=== PATIENT | male | born 1955 | race Caucasian/White ===

== ENCOUNTER 2020-10-04 10:45 | Outpatient (RCR) | payer MEDICARE, MEDICAID, SELFPAY ==
--- NOTE | 2020-07-06 10:31 | PTOPEVAL ---
PHYSICAL THERAPY EVALUATION AND PLAN OF CARE 07-06-2020 Thank you for referring Red Hidalgo to [facility] [place], S/P lL BKA. He is scheduled to be seen for therapy? 2 x/week for 5 weeks. Please review, sign, date and return this plan of care JORGE. I agree with and certify that the following plan of care is medically necessary. Referring Physician Date Referring Provider: Dr. Frederick Arias *PT Outpatient Evaluation Document 07/06/20 09:16 JENNIFER (Rec: 07/06/20 10:31 JENNIFER [id number]) Outpatient Past Medical History Past Medical History Source of Past Medical History Patient Neurological History Hx Neurological Disorders No Significant History Cardiovascular History Hx Coronary Artery Disease Yes Hx Hypercholesterolemia Yes: meds Hx Hypertension Yes: meds Respiratory History Hx Respiratory Disorders No Significant History Gastrointestinal History Hx Gastrointestinal Disorders No Significant History Genitourinary History Hx Genitourinary Disorders No Significant History Musculoskeletal History Hx Arthritis Yes: R knee arthritis, history of R knee pain Hx Orthopedic Surgery Yes: this admit L BKA Hematological History Hx Hematological Disorders No Significant History Endocrine History Hx Diabetes Yes: meds control HEENT History Hx Other HEENT Disorders Yes: glasses Integumentary History Hx Skin Disorders No Significant History Evaluation Information Problem Diagnosis s/p L BKA Onset 02-09-20 Subjective Information 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 Query Text:As Reported By Patient/ bone; live in [place] at time of Family surgery, in March, moved here to live with sister April; waiting for wound to heal then got prosthesis few weeks ago Prior Level of Function Activity Level (Last 3 Months) Occupation 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
--- NOTE | 2020-08-01 09:17 | PCPTNOTE ---
pt did not show for today's appointment; called him and he stated do not have an appointment today, not come back until 08-06-20 .
--- NOTE | 2020-08-09 10:03 | PTOPEVAL ---
PHYSICAL THERAPY REEVALUATION AND UPDATED PLAN OF CARE 08-09-2020 Refer to the clinical summary below for Mr. Hidalgo's improvements in mobility since start of care. Continue PT services 2x/week for 4 weeks. Thank you for referring Red Hidalgo to [facility] [place].? Please review, sign, date and return this updated plan of care [facility]. I agree with and certify that the following plan of care is medically necessary. Referring Physician Date Referring Provider: Frederick Arias MD *PT Outpatient Re-Evaluation Document 08/09/20 09:00 JENNIFER (Rec: 08/09/20 10:03 JENNIFER [id number]) Subjective Information Red reports: wearing Query Text:As Reported By Patient/ prosthesis 3 hours; no issues Family with skin; getting in/out of car and van is awkward- can do himself, but trouble with it; using wheel chair for mobility in home when leg is off for all but 3 hours/day; doing exercises at home, want to continue therapy and walk better; Pain Assessment Timing of Pain Assessment Timing of Pain Assessment Assessment Self Report Self Report Pain Level 0 Pain Score Pain Score 0: Self Report Additional Pain Score Comments with walking, L LE stump/ phantom pain 5/10; Lower Extremity Muscle Strength Testing General Lower Extremity Strength Gross Lower Extremity Strength single leg standing R 8 sec/ L unable; with 1 UE hold L x 4 seconds supine: 5# SLR R 35 / L 46 reps; hip abduction R 20/L 23reps Transfer Assessment Chair Transfer Assessment Chair Transfer Assistive Devices None Orthotic/Prosthetic Devices Left Lower Extremity Prosthesis Sit to Stand Chair Transfer Ability Independent Stand to Sit Chair Transfer Ability Independent Ability to Transfer In/Out of Chair Independent Cues Needed for Chair Transfer None Chair Transfer Comments without use of UE from 18 seat height Floor Transfer Assessment Ambulation Assistive Devices None Orthotic/Prosthetic Devices Left Lower Extremity Prosthesis Sit to Floor Transfer Ability Independent Floor to Sit Transfer Ability Independent Cues Needed for Floor Transfer None Floor Transfer Comments use of UE on mat Balance Assessment Balance Screen Balance Comment static stand x 3 min no loss balance;reach R/L UE up wit
--- NOTE | 2020-09-06 11:55 | PTOPEVAL ---
PHYSICAL THERAPY RE-EVALUATION AND UPDATED PLAN OF CARE 09-06-2020 Refer to the clinical summary below for his status at today's reassessment. Thank you for referring Red Hidalgo to [facility].? He is scheduled to be seen for therapy? 2 x/week for 4 weeks. Please review, sign, date and return this updated plan of care JORGE. I agree with and certify that the following plan of care is medically necessary. Referring Physician Date Attending Provider: Dr. Frederick Arias Document 09/06/20 11:00 JENNIFER (Rec: 09/06/20 11:55 JENNIFER [id number]) Assessment Status Re-evaluation Subjective Information Howie reports: has not had any Query Text:As Reported By Patient/ falls; is wearing his Family prosthesis about 3 hours/ once a day; has not been standing for kitchen tasks- doing things from the wheel chair; has been doing his leg exercises at home and checking his skin of his leg when taking it off; feels like the last 4 weeks have been about the same, the pain in his leg is the same intensity, but less time to recover, once sit down, it eases fairly quickly ; wants to continue PT, to be able to walk with the cane and be more mobile; Pain Assessment Timing of Pain Assessment Timing of Pain Assessment Assessment Pain Scale Pain Scale Used Numeric (1 - 10) Self Report Pain Assessment Left Leg(s) Reported Pain Level 3 Pain Description Phantom,Tightness Pain Frequency Acute Lowest Pain Intensity 0 Greatest Pain Intensity 6 Pain Aggravating Factors Walking,Weight Bearing/ Standing Pain Score Pain Score 3: Self Report Additional Pain Score Comments stump pain is still intense, but shorter recovery-- previously had to remove prosthesis and rub leg, now just sits and rests to ease pain; Interventions Used Interventions Used By Clinicians Education,Exercise Other Alleviating Interventions phantom and L stump pain Lower Extremity Muscle Strength Testing General Lower Extremity Strength Gross Lower Extremity Strength single leg standing: R 5 seconds/ L unable to stand without B UE support; Balance Assessment Kaveh
--- NOTE | 2020-09-28 09:27 | PCPTNOTE ---
LATE ENTRY: 09-13-2020: pt's charge should NOT have a KX modifier.
--- NOTE | 2020-09-28 13:35 | PCPTNOTE ---
Late entry: On the date of 09/17/20 the KX modifier was applied and should not have been. MLV
--- NOTE | 2020-10-02 09:12 | PCPTNOTE ---
pt was seen on 09/10 at 11am for physical therapy treatment. A KX modifier was added mistakenly. please delete .
--- NOTE | 2020-10-04 11:35 | PTOPEVAL ---
PHYSICAL THERAPY RE-EVALUATION AND UPDATED PLAN OF CARE 10-04-2020 Refer to the clinical summary below for his status, compared to the last reevaluation report. PT is to continue 2x/week for 5 weeks, to further increase his gait and dynamic balance skills, with progression of his home exercise program. Thank you for referring Red Hidalgo to [facility].? Please review, sign, date and return this updated plan of care [facility]. I agree with and certify that the following plan of care is medically necessary. Referring Physician Date Referring Provider: Dr. Frederick Arias : Document 10/04/20 10:30 JENNIFER (Rec: 10/04/20 11:35 JENNIFER [id number]) Assessment Status Re-evaluation Subjective Information Red reports: no falls; Query Text:As Reported By Patient/ wearing prosthesis about 6 Family hours/ day; in home using wheelchair for mobility when do not have leg on; with leg on- use wheeled walker or small based quad cane- about half each; Pain Assessment Timing of Pain Assessment Timing of Pain Assessment Assessment Pain Scale Pain Scale Used Numeric (1 - 10) Self Report Pain Assessment Left Leg(s) Reported Pain Level 0 Radicular Pain Location pressure and pain over anterior tibia Pain Frequency Intermittent Other Pain Description phantom pain intermittent-- over lower leg Lowest Pain Intensity 0 Greatest Pain Intensity 4 Pain Score Pain Score 0: Self Report Interventions Used Interventions Used By Clinicians Exercise Lower Extremity Muscle Strength Testing General Lower Extremity Strength Gross Lower Extremity Strength single leg standing: R 12 sec/ L without UE hold 1 sec and with 1 UE hold 22 seconds; Balance Assessment Time Up Go (TUG) Timed Up and Go Test (TUG) (Seconds) 24 Assistive Devices Cane, Small Base Quad,Walker, Wheeled Comments with wheeled walker 24 sec and with small base quad cane 46 sec; Gait Assessment Gait Assessment Ambulation Assistive Devices Cane, Small Base Quad,Walker, Wheeled Orthotic/Prosthetic Devices Left Lower Extremity Prosthesis Orthotic/Prosthetic Type L BKA Ambulation Destination In Gym Ambulation Direction Forward Ambulation Surface Decline,Incline,Level,Smooth Ambulation Ability Standby Assistance Cues Needed For Ambulation None Additional A
--- NOTE | 2020-10-05 16:42 | PCPTNOTE ---
This treatment is being continued on visit number [id number]. Please see documentation on both accounts to view progress. Completed interventions, outcomes, and problems have been marked as Inactive to facilitate the copying of the Care plan routine for recurring accounts.
== END 2020-10-04 23:59 | disposition home or self-care (01) ==
LOC: ANHPT 10:45
DX: Z47.81 Encounter for orthopedic aftercare following surgical amputation (principal); Z89.512 Acquired absence of left leg below knee
CPT/HCPCS: 97110; 97116; 97140; 97161; 97761

== ENCOUNTER 2020-12-20 13:00 | Outpatient (RCR) | payer MEDICARE, MEDICAID, SELFPAY ==
--- NOTE | 2020-11-08 13:26 | PTOPEVAL ---
PHYSICAL THERAPY RE-EVALUATION AND UPDATED PLAN OF CARE 11-08-20 Refer to the clinical summary below for his status compared to the last reevaluation. PT is to continue treatment 1x/week for 6 weeks. Thank you for referring Red Hidalgo to [facility].? Please review, sign, date and return this plan of care [facility]. I agree with and certify that the following plan of care is medically necessary. Referring Physician Date Referring Provider: Dr. Frederick Arias Document 11/08/20 12:35 JENNIFER (Rec: 11/08/20 13:25 JENNIFER [id number]) Assessment Status Re-evaluation Subjective Information Howie reports: legs are Query Text:As Reported By Patient/ stronger, walking and balance Family are better; wearing prosthesis 4 hours/day; using wheeled walker most of the time in the house and [facility] some times; am sleepy and tired more, not sure why; have not had any falls; want to continue therapy; Pain Assessment Timing of Pain Assessment Timing of Pain Assessment Assessment Pain Scale Pain Scale Used Numeric (1 - 10) Self Report Pain Assessment Left Leg(s) Reported Pain Level 1 Pain Frequency Chronic Other Pain Description bone pain at end of leg Lowest Pain Intensity 1 Greatest Pain Intensity 3 Pain Score Pain Score 1: Self Report Additional Pain Score Comments wearing R knee velcro brace due to knee pain; some cramping in R calf intermittent; some phantom pain in L ankle, few times a week; Interventions Used Interventions Used By Clinicians Education,Exercise Lower Extremity Muscle Strength Testing General Lower Extremity Strength Gross Lower Extremity Strength single leg standing on L 2 seconds, unsteady Balance Assessment Tinetti Balance Assessment Sitting Balance Steady, safe Ability to Arise Able, w/o using arms Attempts to Arise Arises on 1st attempt Immediate Standing Balance Steady w/o support Standing Balance Steady, wide stance Nudged Response Steady Standing with Eyes Closed Steady Step Pattern Turning 360 Degrees Discontinuous steps Stability Turning 360 Degrees Unsteady, grabs/staggers Sitting Down Safe, steady Initiation of Gait Hesitancy, mult. attempts Right Foot Step Length Does not pass stance ft. Right Foot Step Height Completely clears floor Left Foot Step Length
--- NOTE | 2020-11-22 11:17 | PCPTNOTE ---
pt called and canceled due to not having transportation;
--- NOTE | 2020-12-20 13:55 | PTOPEVAL ---
PHYSICAL THERAPY DISCHARGE 12-20-20 Refer to the clinical summary below, for his status with today's reeval compared to the last reevaluation. The goals were partially achieved. Discharge PT services. He is to continue with home exercise program, increase walking tolerance and activity level. Thank you for referring Red Hidalgo to [facility].? Please review, sign, date and return this discharge JORGE. I agree with and certify that the following plan of care is medically necessary. Referring Physician Date Referring Provider: Frederick Arias MD Document 12/20/20 13:05 JENNIFER (Rec: 12/20/20 13:55 JENNIFER [id number]) Assessment Status Discharge Subjective Information Howie reports: has not had any Query Text:As Reported By Patient/ falls, wearing prosthesis Family about 5 hours;walking in home with cane or wheeled walker, using w/c when not have leg on ; do not walk without anything at home; continues to check skin and doing leg exercises; have not been going out in the community-- sister doing shopping and no reason to go anywhere now; feel confident walking with the walker and with the cane, more alert about balance; pain in R knee and back limit his walking some; 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, 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 and 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; Pain Assessment Timing of Pain Assessment Timing of Pain Assessment Assessment Pain Scale Pain Scale Used Numeric (1 - 10) Self Report Pain Assessment Left Leg(s) Reported Pain Level 2 Pain Description Phantom Pain Radiation Left Leg Pain Frequency Intermittent Other Pain Description phantom pain in L ankle; Lowest Pain Intensity 0 Greatest Pain Intensity 5 Pain Score Pain Score 2: Self Report Interventions Used Interventions Used By Clinicians Education Balance Assessment Tinetti Balance Assessment Sitting Balance Steady, safe Ability to Arise Able, w/o using arms Attempts to Arise Arises on 1st attempt Immediate Standing Balance Steady w/o support Standing Balance Narrow stance w/o support Nudged Response Steady Standing with Eyes Closed Steady Step Pattern Turning 360 Degrees Continuous steps Stability Turning 360 Degrees U
== END 2020-12-21 11:54 | disposition home or self-care (01) ==
LOC: ANHPT 13:00
DX: Z47.81 Encounter for orthopedic aftercare following surgical amputation (principal); Z89.512 Acquired absence of left leg below knee
CPT/HCPCS: 97110; 97116; 97530

== ENCOUNTER 2021-05-04 17:37 | Inpatient (IN) | payer MEDICARE, MEDICAID, SELFPAY ==
[2021-05-04] VITALS (32 sets, daily range): BP systolic 103–138; BP diastolic 68–90; PULSE 86–112; RESP 19–46; TEMP 37.1; O2SAT 85–100; BMI 30.6
--- NOTE | ~2021-05-04 | XR_ITS ---
XR chest 1V portable DATE: 05/04/2021 18:08 INDICATION: Generalized chest pain. Stomach. History of coronary disease, diabetes mellitus, hyperten yadi TECHNIQUE: Portable AP chest on 05/04/2021 at 1801 hours COMPARISON: None FINDINGS: Status post sternotomy. Heart size is not optimally evaluated on AP projection because of magnification. There are patchy infiltrates involving primarily the mid and lower lung zones. There is some asymmetry overlying the right first costochondral junction which may be bony in nature underlying pulmonary mass or consolidation is not definitively excluded on this limited single portab le view. No pleural effusion is evident. No pneumothorax. IMPRESSION: Patchy bilateral pulmonary infiltrates. Differential diagnosis includes bilateral pneumon ia, less likely pulmonary edema Reviewed, dictated and finalized at location A. IMPRESSION: Patchy bilateral pulmonary infiltrates. Differential diagnosis incl udes bilateral pneumonia, less likely pulmonary edema
--- NOTE | 2021-05-04 17:45 | ECG_ITS ---
Measurements Intervals [place] Rate: 87 P: -32 SD: 135 QRS: 2 QRSD: 124 T: -73 QT: 347 QTc: 419 Interpretive Statements SINUS RHYTHM INTRAVENTRICULAR CONDUCTION DELAY BORDERLINE R WAVE PROGRESSION, ANTERIOR LEADS INFERIOR ST ELEVATION MYOCARDIAL INFARCT- ACUTE BASELINE ARTIFACT- II, V5-V6 ABNORMAL ECG Electronically Signed On 05-05-2021 8:42:02 CDT by Rolan Pulido D.O.
--- NOTE | 2021-05-04 18:01 | ED.CHESTPAIN ---
HPI - Chest Pain General Chief Complaint: Chest Pain Stated Complaint: chest pain Time Seen by Provider: 05/04/21 17:56 Source: patient and RN notes reviewed Mode of arrival: ambulatory Limitations: no limitations History of Present Illness HPI narrative: This is a 65 year old male with history of DM, CAD, CABG who presents for evaluation of chest pain. He states he has been having chest pain intermittently for 2-3 days. This episode of pain started 10 minutes ago . He states it has eased since he left his house. He is describing right chest pressure that radiates to his neck and jaw. He reports his last heart attack was 6 years ago and he had a CABG at that time. [place] moved here from [place] so he does not have a cardiologisty. He states he took aspirin 81 mg last night so he has been given aspirin 324 mg PO in ER. Related Data Home Medications Medication Instructions Recorded Confirmed aspirin 05/04/21 atorvastatin 05/04/21 carvedilol 05/04/21 clopidogrel 05/04/21 empagliflozin [Jardiance] mg 05/04/21 gabapentin 05/04/21 hydrochlorothiazide 05/04/21 lisinopril 05/04/21 metformin mg 05/04/21 Allergies Allergy/AdvReac Type Severity Reaction Status Date / Time No Known Allergies Allergy Verified 05/04/21 18:10 Review of Systems Review of Systems: All systems reviewed & are unremarkable except as noted in HPI and below PMFSH Past Medical History Medical History (Updated 05/04/21 @ 18:11 by Background Ada) CAD (coronary artery disease) Diabetes mellitus History of left below knee amputation Hypertension Surgical History Surgical History (Updated 05/04/21 @ 18:06 by Kassie Raymond MD) Hx of CABG Social History Social History (Updated 05/04/21 @ 18:07 by Kassie Raymond MD) Smoking status: Never smoker Exam Const: General: no acute distress and alert Orientation/consciousness: patient oriented x3 Eyes: EOM: EOMs intact bilaterally Chest: Chest palpation & inspection: normal inspection of the chest Resp: Effort & Inspection: normal respiratory effort and no retractions Auscultation: clear to auscultation bilaterally Cardio: Rate: regular rate Rhythm: regular rhythm Heart sounds: no murmurs GI: GI Palp: Yes Soft to palpation, No Tenderness to palpation present (GI) and No Guarding due to palpation present (GI) Auscultation: normal bowel sounds Skin: General skin exam: normal color Rashes: no rashes Neuro: General: patient oriented x3, moves all extremities and CN's II-XI intact bilaterally Extrem: Other: left lower extremity- BKA Psych: Mental Status: mental status grossly normal Affect: normal affect Course Reevaluation(s) Reevaluation #1: PAtient given aspirin 324 mg and heparin bolus. Date: 05/04/21 Time: 18:08 Consultations Consultation #1: I spoke with Dr. Tyler and he is on his way to [place] for this STEMI. 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 Result diagrams: 05/04/21 17:55 05/04/21 17:55 Labs: Lab Results 05/04/21 05/04/21 05/04/21 Range/Units 17:55 17:55 17:55 WBC 9.9 (4.5-10.0) K/mm3 RBC 3.87 L (4.6-6.20) M/mm3 Hgb 12.6 L (14.0-18.0) g/dL Hct 36.4 L (42.0-52.0) % MCV 94.1 (80-100) fl MCH 32.6 (26-34) pg MCHC 34.6 (32-36) g/dl RDW 13.0 (11.5-14.5) % Plt Count 233 (150-375) k/mm3 MPV 10.9 H (7.4-10.4) fl Immature Gran % (Auto) 0.3 (0-0.5) % Neut % (Auto) 51.0 (45.5-73.1) % Lymph % (Auto) 35.2 (18.3-44.2) % [place] % (Auto) 9.2 H (2.6-8.5) % Eos % (Auto) 3.8 (0-4.4) % Baso % (Auto)
[2021-05-04 18:02] LABS: Basophils Absolute Auto 0.1 K/mm3 (0.0-0.1); Basophils Percent Auto 0.5 % (0.2-1.2); Eosinophils Absolute Auto 0.4 K/mm3 (0-0.3); Eosinophils Percent Auto 3.8 % (0-4.4); Hematocrit 36.4 % (42.0-52.0); Hemoglobin 12.6 g/dL (14.0-18.0); Immature Granulocyte Absolute 0.03 K/mm3 (0.00-0.031); Immature Granulocyte Percent A 0.3 % (0-0.5); Lymphocytes Absolute Auto 3.48 K/mm3 (0.9-3.2); Lymphocytes Percent Auto 35.2 % (18.3-44.2); Mean Corpuscular HGB Conc 34.6 g/dl (32-36); Mean Corpuscular Hemoglobin 32.6 pg (26-34); Mean Corpuscular Volume 94.1 fl (80-100); Mean Platelet Volume 10.9 fl (7.4-10.4); Monocytes Absolute Auto 0.9 K/mm3 (0.1-0.6); Monocytes Percent Auto 9.2 % (2.6-8.5); Neutrophils Absolute Auto 5.1 K/mm3 (1.3-6.7); Platelet Count Result 233 k/mm3 (150-375); Red Blood Count 3.87 M/mm3 (4.6-6.20); White Blood Count 9.9 K/mm3 (4.5-10.0)
[2021-05-04 18:13] LABS: Anion Gap 10 mmol/L (8-16); Blood Urea Nitrogen 37 mg/dL (9-20); Carbon Dioxide 21 mmol/L (22-30); Chloride 106 mmol/L (98-107); Estimated Glomerular Filt Rate > 60; Glucose 197 mg/dL (65-110); Potassium 4.6 mmol/L (3.4-5.0); Sodium 137 mmol/L (137-145)
[2021-05-04 18:15] LABS: INR 0.9; Prothrombin Time 12.3 Seconds (11.1-14.7)
[2021-05-04 18:16] LABS: Partial Thromboplastin Time 27.4 SECONDS (22.3-36.8)
[2021-05-04] MEDS: ASPIRIN 81 MG CHEWABLE TABLET 324 MG PO (18:22)
--- NOTE | 2021-05-04 19:41 | ECG_ITS ---
Measurements Intervals [place] Rate: 101 P: 1 IN: 167 QRS: 90 QRSD: 130 T: -41 QT: 348 QTc: 451 Interpretive Statements SINUS TACHYCARDIA INTRAVENTRICULAR CONDUCTION DELAY POOR R WAVE PROGRESSION, ANTERIOR LEADS INFERIOR INFARCT, PROBABLY RECENT BASELINE ARTIFACT- I, II, III, AVR, AVL, AVF ABNORMAL ECG Electronically Signed On 05-05-2021 8:22:25 CDT by Rolan Pulido D.O.
--- NOTE | 2021-05-04 19:48 | WPDCARDPROC ---
Cardiac Cath Procedure Note Date of procedure:: 05/04/21 Performing physician:: Rex Tyler MD Indication:: ST-elevation [place] Brief clinical history:: this is a 65-year-old man who apparently has longstanding coronary disease underwent bypass grafting previously in [place]. He has never been seen by me in the past he presents to the hospital with couple of days of waxing and waning chest pain and he has ST-elevation in the inferior leads with reciprocal depression. STEMI was declared the emergency room in that setting he is undergoing an emergency angiogram Procedure Procedure performed:: emergency coronary angiography emergency vein graft angiography emergency LEE graft angiography left ventriculography PCI(CRISTINA) to the vein graft to the circumflex Sedation/Medication given:: no sedation Access site:: right femoral artery Estimated blood loss:: 30-40 cc Procedure note:: patient was brought to the cardiac catheterization lab in the emergency setting described above. The right femoral triangle was prepped and draped in the usual fashion. Anesthesia was given 1% lidocaine infiltrated locally. Using the modified Seldinger a 6 [place] sheath was placed into the femoral artery. After this I used a 5 [place] FL4 catheter to engage and inject the left coronary artery. Following this a 5 [place] JR4 catheter was used to engage inject the right coronary artery as well as the vein graft appearing to go to the right coronary artery. The JR4 catheter was then used also to engage the left internal mammary artery graft. Following this I switched for a 6 [place] A1 multipurpose guiding catheter. This was unable to engage any grafts. I then switched to a 6 [place] JR4 catheter which did engage and inject a saphenous vein graft to the circumflex system. Following review of the cineangiograms PCI of the circumflex vein graft was recommended and carried out as detailed below. Following balloon dilatation and stenting as mentioned below there was slow reflow in the vessel this was treated with 200 micro g of intracoronary nitroglycerin x2, intracoronary bolus of Integrilin and intracoronary bolus of verapamil. Following this the guiding catheter and wires were removed. I used a 5 [place] angled pigtail catheter then to measure left-sided hemodynamics and to inject the left ventriculogram in the MONTIEL projection. After this the case was terminated. The sheath was sutured into position the patient will be taken to the ICU for post mi/PCI recovery in guarded condition. Findings:: Hemodynamics: Central aortic pressure 110 over 68 left ventricle 110 over 80 end-diastolic pressure 30. There is no gradient on pullback across the aortic valve. Left ventricle: Left ventricle is significantly dilated the infero posterior segments are totally akinetic the anterior wall contracts relatively well the global ejection fraction is about 30-35% by visual estimation. There is moderate mitral valve regurgitation. The left main coronary artery is mildly diseased but no significant stenosis is identified. The left anterior descending is a medium caliber artery giving rise to a septal perforating branch revealed moderate size after which the chilkat LAD is 100% occluded appearing to be a chronic total occlusion. The circumflex is a medium caliber vessel giving rise to a very small proximal OM branch after which the chilkat circumflex is 100% occluded appears also to be a chronic total occlusion. The right coronary artery is dominant to the posterior circulation it is heavily calcified proximally the right coronary artery is 100% occluded. The left internal mammary was injected using the JR4 catheter it is a large segment of internal mammary artery is nicely patent and the anastomosis of the mid LAD looks patent it fills the LAD nicely. The saphenous vein graft to the right coronary artery appears to be 100% occluded at its origin. This appears to be a chronic occl
--- NOTE | 2021-05-04 20:00 | PM.IMHP ---
H&P: HPI History of Present Illness Date/Time: 05/04/21 20:00 Chief Complaint: chest pain Narrative: this is a 65-year-old man who I have not seen previous to this encounter he came to the emergency room this evening at [facility] with the history of in a waxing and waning chest pain for a couple of days. He is seen in the emergency department and found to have ST elevation in the inferior leads with some reciprocal depression and STEMI was declared. 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 The patient apparently has a history of coronary disease were used to live in [place] where he underwent bypass grafting he thinks about 6 years ago. The details of the surgery of course are unavailable to me at the time of this emergency. He reports that he has hypertension hypercholesterolemia and type 2 diabetes. No other direct history is obtainable at this time during this emergency Review of Systems Review of Systems: ROS unobtainable: Yes unobtainable due to medical condition PMFSH Past Medical History Medical History (Updated 05/04/21 @ 18:11 by Leno Caballero) CAD (coronary artery disease) Diabetes mellitus History of left below knee amputation Hypertension Surgical History Surgical History (Updated 05/04/21 @ 18:06 by Kassie Raymond MD) Hx of CABG Social History Social History (Updated 05/04/21 @ 18:07 by Kassie Raymond MD) Smoking status: Never smoker Meds Home Medications and Allergies Home Medications Medication Instructions Recorded Confirmed Type aspirin 05/04/21 History atorvastatin 05/04/21 History carvedilol 05/04/21 History clopidogrel 05/04/21 History empagliflozin [Jardiance] mg 05/04/21 History gabapentin 05/04/21 History hydrochlorothiazide 05/04/21 History lisinopril 05/04/21 History metformin mg 05/04/21 History Allergies Allergy/AdvReac Type Severity Reaction Status Date / Time No Known Allergies Allergy Verified 05/04/21 18:10 Vital Signs Vital Signs - 24 hr 05/04/21 17:45 05/04/21 18:12 05/04/21 18:30 Pulse Rate 87 86 87 Respiratory Rate 19 19 Blood Pressure 137/87 137/87 Pulse Oximetry 100 99 Exam Const: General: uncomfortable Other: overweight white male appears to be uncomfortable with chest pain HENMT: Mouth: Yes moist mucous membranes Eyes: Sclera: sclerae normal Pupils: Equal, round and reactive pupils present Neck: Neck: supple and no JVD Thyroid: thyroid normal Resp: Auscultation: clear to auscultation bilaterally Other: increased respiratory effort noted Cardio: Rate: regular rate Rhythm: regular rhythm Other: PMI is enlarged no audible murmur there is S3 noted GI: GI Palp: Yes Soft to palpation Auscultation: normal bowel sounds Skin: General skin exam: normal color Neuro: Cognition (Neuro): normal cognition Extrem: Other: distal pulses are adequate there is no significant edema H&P: Results Labs Labs: Short CBC 05/04/21 Range/Units 17:55 WBC 9.9 (4.5-10.0) K/mm3 Hgb 12.6 L (14.0-18.0) g/dL Hct 36.4 L (42.0-52.0) % Plt Count 233 (150-375) k/mm3 BMP 05/04/21 17:55 Sodium 137 Potassium 4.6 Chloride 106 Carbon Dioxide 21 L BUN 37 H Creatinine 1.20 Glucose 197 H Calcium 11.0 H Cardiac Enzymes 05/04/21 Range/Units 17:55 Troponin I 3.550 H* (0.000-0.034) ng/mL Assessment and Plan Additional Plan this 65-year-old man with coronary disease previous history of bypass grafting no previous records on this gentleman. Presenting with several days of waxing and waning chest pain and inferior ST elevation. In this setting he has been brought for emergency coronary angiography and revascularization if possible based on the findings. Obviously this procedure is difficult and challenging given the fact that the patient has previously undergone surgical revascularization and we have no records of any of those anatomical detai
--- NOTE | 2021-05-04 20:05 | ADMGEN ---
This patient, Red Hidalgo, was admitted to Intensive Care Unit-10. Patient/family oriented to hospital policies and general routines including ID bracelet, bed and alarms, visiting hours, pain management, procedures, bathroom and other care routines, personal items, smoking policy, room service/diet, and visiting hours. Information on how to activate the Rapid Response Team has been discussed. Patient/Family are encouraged to report perceived risks to care and to ask questions if they do not understand what they are told or what they should do.
--- NOTE | 2021-05-04 20:24 | SUR.OPER ---
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 Stat 91% on 4L. Dr. Tyler at bedside and aware. Verbal order from Dr. Tyler to administer 40 mg IV lasix. Administered by this RN at 0800. Patient placed in reverse trendelenburg. Patient transported to ICU via bed where he and CCL staff were met by ELECTRIC BATH ATTENDANT Ximena.
[2021-05-04 20:28] LABS: Cholesterol 141 mg/dL (0-200); HDL Direct 25 mg/dL; Triglycerides 491 mg/dL (<150)
[2021-05-04 20:38] LABS: LDL Cholesterol Direct 52 mg/dL
--- NOTE | 2021-05-04 20:56 | PM.IMCN ---
Assessment and Plan Assessment and plan (1) ST elevation (STEMI) myocardial infarction: Code(s): I21.3 - ST elevation (STEMI) myocardial infarction of unspecified site Status: Acute Assessment and Plan: Defer care to Cardiology. The patient did go to the cardiac catheterization lab. Please see the cardiac catheterization report and cardiology report. The patient is on Crestor, Coreg and isosorbide. It looks like according to his med list the patient had been on atorvastatin at home. The patient was also on an aspirin at home. The patient is currently on Brilinta and the aspirin was continued. (2) CHF (congestive heart failure), NYHA class I: Code(s): I50.9 - Heart failure, unspecified Status: Acute Assessment and Plan: The patient was given IV Lasix patient's EF was reported as 30-35%. The patient is currently on Coreg and isosorbide, spironolactone, and Entresto. The patient was placed on a BiPAP for tonight due to his respiratory distress. (3) Diabetes mellitus: Code(s): E11.9 - Type 2 diabetes mellitus without complications Status: Chronic Assessment and Plan: Accu-Cheks AC and HS. Continue with sliding scale insulin. Check A1c. (4) CAD (coronary artery disease): Code(s): I25.10 - Atherosclerotic heart disease of [place] coronary artery without angina pectoris Status: Chronic Assessment and Plan: But the patient has a history of 3 vessel CABG and now has a coronary artery stent. Medications per Cardiology (5) Hyperlipidemia: Code(s): E78.5 - Hyperlipidemia, unspecified Status: Chronic Assessment and Plan: Continue with Crestor (6) Hypertension: Code(s): I10 - Essential (primary) hypertension Status: Chronic Assessment and Plan: Continue with Entresto and Coreg per Cardiology. The patient is also on spironolactone. (7) Neuropathy: Code(s): G62.9 - Polyneuropathy, unspecified Status: Chronic Assessment and Plan: Continue with gabapentin. HPI Data of Consult Consult date: 05/04/21 Requesting Physician: Rex Tyler MD Primary Care Provider: MARQUIS,CUONG Strong M.D. Consult Narrative Narrative: Red Hidalgo is a 65 year old male this is a 65-year-old male patient who has a past medical history of having coronary artery disease with the past medical history of 3 vessel CABG. The patient recently moved here from [place] and is now living here with his sister. The patient also history of having diabetes with the left gjiux-shu-jyaa amputation. The patient presented to the emergency room with complaints of having chest pain intermittently on on and off for the last 2-3 days. The episode of pain started 10 minutes prior to coming to the emergency room and has he has some since he left his house. The patient described his pain is right chest pain pressure that radiated to his neck and jaw. His last reported myocardial infarction was 6 years ago and had a CABG at that time. The patient took 81 mg of aspirin last night he was given 324 mg of aspirin in the emergency room. A inferior STEMI was called and the patient was taken to the cardiac catheterization lab. Please see cardiac cath notes. The patient was placed in the intensive care unit and was very short of breath. The patient had some adventitious breath sounds with rhonchi. The patient's respirations were somewhat labored and the patient was abdominal breathing. Cardiology was called and the patient was given 40 of IV Lasix. After evaluating the patient I decided to place the patient on a BiPAP. We discussed code status and the patient stated that he would like to be a full code. The sister is at the bedside and stated that he does not have a durable power contracts attorney at this time. Chest x-ray was read as patchy bilateral pulmonary infiltrates. Differential diagnosis includes bilateral pneumonia least likely pulmonary edema. The delvis
[2021-05-04] MEDS: EPTIFIBATIDE 0.75 MG/ML 75 MG/100 ML VIAL 15.24 MG IV CONT (21:10)
[2021-05-04] MEDS: carvediloL 6.25 MG TABLET PO (21:13)
[2021-05-04] MEDS: SACUBITRIL/VALSARTAN 24-26 MG TABLET 1 TAB PO (21:14)
[2021-05-04 21:38] LABS: Glucose Point of Care 215 mg/dl (65-105)
--- NOTE | 2021-05-04 21:38 | PC.NURSE ---
Patients brother information: Jose Rocky,
[2021-05-04] MEDS: NITROGLYCERIN SL 0.4 MG TABLET SUBLINGUAL (22:46)
[2021-05-05] VITALS (32 sets, daily range): BP systolic 76–124; BP diastolic 52–80; PULSE 71–93; RESP 15–28; TEMP 36.6–37.1; O2SAT 88–100
[2021-05-05] MEDS: EPTIFIBATIDE 0.75 MG/ML 75 MG/100 ML VIAL 15.24 MG IV CONT ×2 (02:52→09:05)
--- NOTE | 2021-05-05 05:11 | ECG_ITS ---
Measurements Intervals [place] Rate: 83 P: -13 DC: 162 QRS: 119 QRSD: 124 T: 0 QT: 364 QTc: 430 Interpretive Statements SINUS RHYTHM POSSIBLE LEFT ATRIAL ENLARGEMENT INTRAVENTRICULAR CONDUCTION DELAY POOR R WAVE PROGRESSION, ANTERIOR LEADS INFERIOR ST ELEVATION MYOCARDIAL INFARCT- ACUTE ABNORMAL ECG Electronically Signed On 05-05-2021 8:43:28 CDT by Rolan Pulido D.O.
[2021-05-05 05:50] LABS: Basophils Percent Auto 0.2 % (0.2-1.2); Eosinophils Absolute Auto 0.1 K/mm3 (0-0.3); Eosinophils Percent Auto 0.8 % (0-4.4); Hematocrit 38.6 % (42.0-52.0); Hemoglobin 13.2 g/dL (14.0-18.0); Immature Granulocyte Absolute 0.04 K/mm3 (0.00-0.031); Immature Granulocyte Percent A 0.4 % (0-0.5); Lymphocytes Absolute Auto 1.62 K/mm3 (0.9-3.2); Lymphocytes Percent Auto 16.5 % (18.3-44.2); Mean Corpuscular HGB Conc 34.2 g/dl (32-36); Mean Corpuscular Hemoglobin 32.4 pg (26-34); Mean Corpuscular Volume 94.6 fl (80-100); Monocytes Absolute Auto 0.8 K/mm3 (0.1-0.6); Monocytes Percent Auto 8.5 % (2.6-8.5); Neutrophils Absolute Auto 7.2 K/mm3 (1.3-6.7); Neutrophils Percent Auto 73.6 % (45.5-73.1); Platelet Count Result 243 k/mm3 (150-375); Red Blood Count 4.08 M/mm3 (4.6-6.20); Red Cell Distribution Width 12.9 % (11.5-14.5); White Blood Count 9.8 K/mm3 (4.5-10.0)
[2021-05-05 05:53] LABS: Alanine Aminotransferase 27 U/L (4-50); Albumin Level 4.3 g/dL (3.5-5.1); Alkaline Phosphatase 76 U/L (38-126); Anion Gap 12 mmol/L (8-16); Aspartate Amino Transferase 95 U/L (17-59); Bilirubin,Total 1.4 mg/dL (0.2-1.3); Blood Urea Nitrogen 38 mg/dL (9-20); Calcium 10.8 mg/dL (8.4-10.2); Carbon Dioxide 23 mmol/L (22-30); Chloride 100 mmol/L (98-107); Estimated CRCL calculation 68 ml/min; Estimated Glomerular Filt Rate > 60; Glucose 160 mg/dL (65-110); Magnesium 1.2 mg/dL (1.6-2.3); Potassium 4.1 mmol/L (3.4-5.0); Sodium 135 mmol/L (137-145)
[2021-05-05 05:58] LABS: Lactic Acid Reflex 1.1 mmol/L (0.7-2.1)
[2021-05-05] MEDS: MAGNESIUM SULF 2 GM/WATER 50ML 2 GM/50 ML BAG IVPB (06:19)
[2021-05-05 06:33] LABS: Hemoglobin A1C 7.1 % (<5.7)
[2021-05-05 06:53] LABS: Thyroid Stimulating Hormone Reflex 0.848 uIU/mL (0.465-4.68)
[2021-05-05 08:24] LABS: Glucose Point of Care 128 mg/dl (65-105)
[2021-05-05] MEDS: TICAGRELOR 90 MG TABLET PO ×2 (08:25→20:29)
[2021-05-05] MEDS: FUROSEMIDE INJ 40 MG/4 ML VIAL IV PUSH (08:26)
[2021-05-05] MEDS: ISOSORBIDE MONONITRATE 30 MG TAB.ER.24H PO (08:26)
[2021-05-05] MEDS: SACUBITRIL/VALSARTAN 24-26 MG TABLET 1 TAB PO ×2 (08:26→20:30)
[2021-05-05] MEDS: carvediloL 6.25 MG TABLET PO ×2 (08:26→20:29)
[2021-05-05] MEDS: ROSUVASTATIN 10 MG TABLET 20 MG PO (08:26)
[2021-05-05] MEDS: SPIRONOLACTONE 25 MG TABLET PO (08:26)
[2021-05-05] MEDS: ASPIRIN 81 MG CHEWABLE TABLET PO (08:26)
--- NOTE | 2021-05-05 09:46 | PM.PNCARD ---
Progress Note: A&P Additional Plan 65-year-old man with: Acute ST segment elevation SD last evening due to subtotal occlusion and severe degenerative disease in his circumflex saphenous vein graft. PCI this was done with angiographic success but with slow reflow phenomenon. He is much more stable this morning and acute congestive heart failure is markedly better. We will continue the regimen of dual anti-platelet therapy, Entresto carvedilol and rosuvastatin. Was very concerned last evening that he might require intubation but that has been avoided. We will stop his intravenous Integrilin infusion today. Keep him in the ICU until tomorrow and then her recover slowly. Anticipate at least a couple more days in the hospital in this situation as he does have a significant ischemic cardiomyopathy at this time Rex Tyler MD [facility] Subjective Date/time seen: Date of service: 05/05/21 09:46 Interval history: Follow-up visit in this 65-year-old man with: Acute ST-elevation myocardial infarction with emergency PCI of severely degenerated saphenous vein graft to the circumflex. Patient had slow reflow phenomenon after stent was deployed which was treated with intracoronary Integrilin, nitroglycerin and verapamil. He stabilized clinically and is recovering in the ICU. Patient had acute congestive heart failure last evening from a following the PCI. He has significant ischemic LV dysfunction ejection fraction about 30-35% and last night had at least moderate mitral regurgitation by LV g. As detailed in the catheter builder all of his [place] coronary circulation is essentially occluded save for a septal branch off the LAD and a very small 1st OM branch. His only remaining good coronary circulation remains his LEE to the LAD. Despite the above he is feeling much better this morning breathing comfortably no longer having any chest pain. Exam Const: General: comfortable and no acute distress Other: Patient appears much more comfortable than last evening HENMT: Mouth: Yes moist mucous membranes Eyes: Sclera: sclerae normal Pupils: Equal, round and reactive pupils present Neck: Neck: supple and no JVD Other: No carotid bruits are audible Resp: Effort & Inspection: normal respiratory effort Other: Scant basilar rales Cardio: Rate: regular rate Rhythm: regular rhythm Other: No audible MR this morning GI: GI Palp: Yes Soft to palpation Auscultation: normal bowel sounds Skin: General skin exam: normal color Neuro: Cognition (Neuro): normal cognition Extrem: General: normal to inspection Objective Data Vital Signs Vital Signs: Vital Signs - 24 hr 05/04/21 17:45 05/04/21 18:12 05/04/21 18:30 Temperature Pulse Rate 87 86 87 Respiratory Rate 19 19 Blood Pressure 137/87 137/87 Pulse Oximetry 100 99 05/04/21 20:11 05/04/21 20:15 05/04/21 20:20 Temperature 37.1 C Pulse Rate 112 H 104 H Respiratory Rate 46 H Blood Pressure 138/89 Pulse Oximetry 85 L 93 05/04/21 20:30 05/04/21 20:31 05/04/21 20:45 Temperature Pulse Rate 100 96 101 H Respiratory Rate 31 H 32 H 28 H Blood Pressure 121/77 118/82 Pulse Oximetry 95 95 97 05/04/21 20:46 05/04/21 21:00 05/04/21 21:01 Temperature Pulse Rate 96 100 99 Respiratory Rate 31 H 22 H 26 H Blood Pressure 115/87 Pulse Oximetry 97 97 97 05/04/21 21:13 05/04/21 21:15 05/04/21 21:16 Temperature Pulse Rate 97 98 99 Respiratory Rate 27 H 28 H Blood Pressure 109/74 Pulse Oximetry 97 96 05/04/21 21:26 05/04/21 21:30 05/04/21 21:31 Temperature Pulse Rate 97 95 96 Respiratory Rate 25 H 25 H 27 H Blood Pressure 103/68 Pulse Oximetry 98 97 97 05/04/21 21:45 05/04/21 21:46 05/04/21 22:00 Temperature Pulse Rate 92 91 91 Respiratory Rate 23 H 23 H 24 H Blood Pressure 110/76 104/72 Pulse Oximetry 98 100 99 05/04/21 22:01 05/04/21 22:15 05/04/21 22:16 Temperature Pulse Rate 91 91 92 Respiratory Rate 23 H 26 H 20
[2021-05-05] MEDS: SODIUM CHLORIDE 0.9% IV 500 ML IV CONT (10:12)
--- NOTE | 2021-05-05 10:14 | WPDCNINT ---
Assessment and Plan Assessment and plan (1) Hypotension: Code(s): I95.9 - Hypotension, unspecified Status: Acute Assessment and Plan: his blood pressure was adequate this morning and this is likely secondary to his morning medications. He received Coreg, Entresto and Lasix this morning patient will be given 500 cc normal saline bolus I will start patient on phenylephrine infusion to maintain his blood pressure acceptable level until the effect of medicines were of check CBC (2) Acute respiratory failure: Code(s): J96.00 - Acute respiratory failure, unspecified whether with hypoxia or hypercapnia Status: Acute Assessment and Plan: secondary to pulmonary edema patient has been placed on BiPAP continue monitor closely Lasix was given this morning but currently due to her low blood pressure will be held for now (3) Mitral regurgitation: Code(s): I34.0 - Nonrheumatic mitral (valve) insufficiency Status: Acute Assessment and Plan: likely exacerbating his pulmonary edema as patient does not appear overall volume overloaded afterload reduction once patient's hemodynamics have stabilized (4) CHF (congestive heart failure), NYHA class I: Code(s): I50.9 - Heart failure, unspecified Status: Acute Assessment and Plan: patient's EF appears to be 30-35% he received Lasix this morning. hold further Lasix for now check echocardiogram (5) ST elevation (STEMI) myocardial infarction: Code(s): I21.3 - ST elevation (STEMI) myocardial infarction of unspecified site Status: Acute Assessment and Plan: status post CABG in the past now states was PCI on this admission dual antiplatelet therapy and statin beta-trudi and ARB when blood pressure allows (6) CAD (coronary artery disease): Code(s): I25.10 - Atherosclerotic heart disease of [place] coronary artery without angina pectoris Status: Chronic (7) Diabetes mellitus: Code(s): E11.9 - Type 2 diabetes mellitus without complications Status: Chronic Assessment and Plan: sliding scale insulin (8) Hyperlipidemia: Code(s): E78.5 - Hyperlipidemia, unspecified Status: Chronic Assessment and Plan: statin (9) Neuropathy: Code(s): G62.9 - Polyneuropathy, unspecified Status: Chronic Assessment and Plan: Neurontin Additional Plan DVT prophylaxis - start Lovenox Nutrition - Tube Feeds Code Status - Full Code case discussed with Cardiology Total Critical Care Time - 40 minutes Due to a high probability of clinically significant, life threatening deterioration, the patient required my highest level of preparedness to intervene emergently and I personally spent this critical care time directly and personally managing the patient. This critical care time included obtaining a history; examining the patient; pulse oximetry; ordering and review of studies; arranging urgent treatment with development of a management plan; evaluation of patient's response to treatment; frequent reassessment; and discussions with other providers. It was exclusive of separately billable procedures and treating other patients and teaching time. 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 The patient recently moved here from [place] and is now living here with his sister. The patient also history of having diabetes with the left bzzvr-skk-wffh amputation. He presented yesterday to ER with chief complaint of chest pain on the right side of chest which was going on and off for 2 3 days and dyspnea mostly on exertion. Patient was diagnosed with inferior ST
[2021-05-05 10:37] LABS: Hematocrit 35.1 % (42.0-52.0); Hemoglobin 12.3 g/dL (14.0-18.0); Mean Corpuscular Hemoglobin 33.2 pg (26-34); Mean Corpuscular Volume 94.9 fl (80-100); Mean Platelet Volume 10.8 fl (7.4-10.4); Platelet Count Result 237 k/mm3 (150-375); White Blood Count 11.4 K/mm3 (4.5-10.0)
[2021-05-05 12:52] LABS: Glucose Point of Care 216 mg/dl (65-105)
[2021-05-05 16:54] LABS: Glucose Point of Care 178 mg/dl (65-105)
--- NOTE | 2021-05-05 17:59 | PM.IMPN ---
Progress Note: A&P Assessment and Plan (1) ST elevation (STEMI) myocardial infarction: Code(s): I21.3 - ST elevation (STEMI) myocardial infarction of unspecified site Status: Acute (2) CHF (congestive heart failure), NYHA class I: Code(s): I50.9 - Heart failure, unspecified Status: Acute (3) Diabetes mellitus: Code(s): E11.9 - Type 2 diabetes mellitus without complications Status: Chronic Assessment and Plan: Accu-Cheks AC and HS. Continue with sliding scale insulin. Check A1c. (4) CAD (coronary artery disease): Code(s): I25.10 - Atherosclerotic heart disease of [place] coronary artery without angina pectoris Status: Chronic (5) Hyperlipidemia: Code(s): E78.5 - Hyperlipidemia, unspecified Status: Chronic Assessment and Plan: Continue with Crestor (6) Hypertension: Code(s): I10 - Essential (primary) hypertension Status: Chronic (7) Neuropathy: Code(s): G62.9 - Polyneuropathy, unspecified Status: Chronic Assessment and Plan: . Additional Plan 05/04/21 patient has a history of 3 vessel CABG and now has a coronary artery stent. Medications per Cardiology The patient did go to the cardiac catheterization lab. Please see the cardiac catheterization report and cardiology report. The patient is on Crestor, Coreg and isosorbide. It looks like according to his med list the patient had been on atorvastatin at home. The patient was also on an aspirin at home. The patient is currently on Brilinta and the aspirin was continued.The patient was given IV Lasix patient's EF was reported as 30-35%. The patient is currently on Coreg and isosorbide, spironolactone, and Entresto. The patient was placed on a BiPAP for tonight due to his respiratory distress. Continue with Crestor. Continue with gabapentin 05/05/21 blood glucose at goal iatrogenic hypotension normalizing cont cardiac meds remain in ICU for observation overnight anticipate dc home in 24-48hrs Subjective Date/time seen: 05/05/21 17:59 Patient doing okay has no complaints at time my interview Exam Const: General: cooperative, comfortable, no acute distress, well developed, alert, awake, Physically active and ill appearing Nutritional Appearance: well nourished and overweight Orientation/consciousness: oriented to person, oriented to place, oriented to time and patient oriented x3 HENMT: Head: normal to inspection, No palpable skull fracture present, normocephalic and atraumatic Ears: hearing grossly normal bilaterally and external ears normal General nose exam: Normal external nose present and Normal nares present Eyes: General: appearance normal, both eyes and all related structures Alignment and Position: alignment normal Periorbital: periorbital findings normal Eyelids: eyelids normal Conjunctivae: conjunctivae normal Sclera: sclerae normal Cornea: corneas normal Pupils: Equal, round and reactive pupils present EOM: EOMs intact bilaterally Neck: Neck: normal visual inspection, full ROM and no lymphadenopathy Chest: Chest palpation & inspection: normal inspection of the chest Resp: Effort & Inspection: normal respiratory effort Auscultation: clear to auscultation bilaterally Percussion: percussion normal Cardio: Palpation: normal PMI Rate: regular rate Rhythm: regular rhythm Heart sounds: S1 normal heart sound present and S2 normal heart sound present Peripheral pulses: Peripheral pulses 2+ throughout GI: Inspection: normal to inspection Auscultation: normal bowel sounds Rectal Exam: deferred Skin: General skin exam: normal color Lesions: no lesions Rashes: no rashes Trauma: no lacerations or abrasions Wounds: no wounds Hair: normal Nails: normal Neuro: General: oriented to person, oriented to place, oriented to time and patient oriented x3 Cranial nerves: Yes Normal hearing present Cognition (Neuro): normal cognition Speech: normal speech
[2021-05-05 23:46] LABS: Glucose Point of Care 176 mg/dl (65-105)
[2021-05-06] VITALS (16 sets, daily range): BP systolic 92–153; BP diastolic 60–102; PULSE 70–95; RESP 16–27; TEMP 36.2–37.1; O2SAT 94–99
--- NOTE | 2021-05-06 | ECHO_ITS ---
Patient Info Name: Red Hidalgo Age: 65 years : 1955 Gender: Male Ht: 70 in Wt: 209 lbs BSA: 2.19 m2 HR: 86 bpm BP: 100 / 66 mmHg Heart Rhythm: Sinus Rhythm Technical Quality: Poor Exam Date: 05/06/2021 1:22 PM Exam Location: [facility] Pulmonary Exam Room: ICU10 Patient Status: Inpatient Admit Date: 05/04/2021 Staff Ordering Physician: Samm Billy MD Prepleater: Sabrina Duvall RDCS Attending Provider: Samm Billy MD Exam Type: CA echo doppler color flow Study Info Indications - CHF Complete two-dimensional, color flow and Doppler transthoracic echocardiogram is performed with contrast to opacify the left ventricle and to improve the deliniation of the left ventricle endocardial borders. Contrast/Agitated Saline Contrast/Ag. Saline: Definity Amount: 1.00 ml Existing IV Access: Yes Reason for Poor Study: patient body habitus Summary 1. Technically difficult study with limited views despite definity echo contrast enhancement. 2. Left ventricular chamber dimension is moderately enlarged. 3. Left ventricular systolic function is moderately reduced, estimated at 35-40% with hypokinesis of the inferolateral wall.. 4. Left atrial chamber dimension is moderately enlarged. 5. There is trace tricuspid valve regurgitation. 6. No pulmonary hypertension, estimated pulmonary arterial systolic pressure is 28 mmHg. 7. There is no aortic valve stenosis. 8. There is mild mitral valve regurgitation. Left Ventricle Left ventricular chamber dimension is moderately enlarged. Left ventricular systolic function is moderately reduced, estimated at 35-40% with hypokinesis of the inferolateral wall.. There is mildly increased left ventricular wall thickness. The left ventricular diastolic function is grade I diastolic dysfunction. Technically difficult study with limited views despite definity echo contrast enhancement. Right Ventricle Right ventricular chamber dimension is not well visualized. Left Atria Left atrial chamber dimension is moderately enlarged. Right Atria Right atrial chamber dimension is mildly enlarged. Aortic Valve The aortic valve is probable trileaflet. There is mild aortic valve sclerosis. There is no aortic valve stenosis. There is no aortic valve regurgitation. Pulmonic Valve The pulmonic valve is not well visualized. Mitral Valve The mitral valve has normal leaflets. There is mild mitral valve regurgitation. The mitral valve annulus is mildly calcified. Tricuspid Valve The tricuspid valve leaflets are normal. There is trace tricuspid valve regurgitation. No pulmonary hypertension, estimated pulmonary arterial systolic pressure is 28 mmHg. Pericardium/Pleural The pericardium appears normal. There is no pericardial effusion. Inferior Vena Cava Normal inferior vena cava with >50% collapse upon inspiration consistent with normal right atrial pressure, 5 mmHg. Aorta The aortic root size at the sinus of Valsalva is normal. There is mild-moderate aortic atherosclerosis. Left Ventricular Outflow Tract Name Value Normal LVOT 2D LVOT Diameter 2.1 cm LVOT Do
[2021-05-06 04:36] LABS: Hematocrit 36.8 % (42.0-52.0); Hemoglobin 12.7 g/dL (14.0-18.0); Mean Corpuscular HGB Conc 34.5 g/dl (32-36); Mean Corpuscular Volume 95.6 fl (80-100); Mean Platelet Volume 10.7 fl (7.4-10.4); Platelet Count Result 205 k/mm3 (150-375); Red Blood Count 3.85 M/mm3 (4.6-6.20); White Blood Count 8.9 K/mm3 (4.5-10.0)
[2021-05-06 04:51] LABS: Alanine Aminotransferase 25 U/L (4-50); Albumin Level 3.9 g/dL (3.5-5.1); Alkaline Phosphatase 54 U/L (38-126); Anion Gap 9 mmol/L (8-16); Aspartate Amino Transferase 76 U/L (17-59); Bilirubin,Total 1.7 mg/dL (0.2-1.3); Blood Urea Nitrogen 38 mg/dL (9-20); Calcium 9.7 mg/dL (8.4-10.2); Carbon Dioxide 25 mmol/L (22-30); Chloride 101 mmol/L (98-107); Estimated CRCL calculation 63 ml/min; Estimated Glomerular Filt Rate > 60; Glucose 160 mg/dL (65-110); Magnesium 1.6 mg/dL (1.6-2.3); Potassium 3.9 mmol/L (3.4-5.0); Sodium 135 mmol/L (137-145)
[2021-05-06 04:56] LABS: NT Pro B Type Natriuretic Pept 5270 pg/mL (5-100)
--- NOTE | 2021-05-06 06:41 | P.CDI_ITS ---
CDI Query Clarification Request -Acute CHF has been documented - patient's EF appears to be 30-35% has been documented -Lasix 40mg IV has been given x2 Please further clarify type of acute CHF: * Systolic * Diastolic * Both systolic and diastolic * Unable to determine <Hamida Kim RN - Last Filed: 05/06/21 06:47>
[2021-05-06 07:03] LABS: Glucose Point of Care 140 mg/dl (65-105)
[2021-05-06] MEDS: ASPIRIN 81 MG CHEWABLE TABLET PO (07:56)
--- NOTE | 2021-05-06 08:58 | WPDINTPN ---
Progress Note: A&P Assessment and Plan (1) Hypotension: Code(s): I95.9 - Hypotension, unspecified Status: Acute Assessment and Plan: Developed after receiving p.o. heart and blood pressure medication yesterday He was given 500 cc normal saline bolus and phenylephrine infusion was ordered but never required CBC was checked and was stable Blood pressure improved now Will hold p.o. blood pressure medications and discuss with Cardiology regarding starting with lower dose and slowly up titrating (2) Acute respiratory failure: Code(s): J96.00 - Acute respiratory failure, unspecified whether with hypoxia or hypercapnia Status: Acute Assessment and Plan: Improved and patient is now on room air Hold Lasix today Incentive spirometry Up in chair (3) Mitral regurgitation: Code(s): I34.0 - Nonrheumatic mitral (valve) insufficiency Status: Acute Assessment and Plan: Afterload reduction as allowed by blood pressure (4) CHF (congestive heart failure), NYHA class I: Code(s): I50.9 - Heart failure, unspecified Status: Acute Assessment and Plan: patient's EF appears to be 30-35% hold further Lasix for now check echocardiogram (5) ST elevation (STEMI) myocardial infarction: Code(s): I21.3 - ST elevation (STEMI) myocardial infarction of unspecified site Status: Acute Assessment and Plan: status post CABG in the past now states was PCI on this admission dual antiplatelet therapy and statin Start beta-trudi and add ARB when blood pressure allows (6) CAD (coronary artery disease): Code(s): I25.10 - Atherosclerotic heart disease of [place] coronary artery without angina pectoris Status: Chronic (7) Diabetes mellitus: Code(s): E11.9 - Type 2 diabetes mellitus without complications Status: Chronic Assessment and Plan: sliding scale insulin (8) Hyperlipidemia: Code(s): E78.5 - Hyperlipidemia, unspecified Status: Chronic Assessment and Plan: statin (9) Neuropathy: Code(s): G62.9 - Polyneuropathy, unspecified Status: Chronic Assessment and Plan: Neurontin Additional Plan DVT prophylaxis - start Lovenox Nutrition - Tube Feeds Code Status - Full Code Incentive spirometry, up in chair, PT OT consult Transfer out of ICU today Subjective Date/time seen: 05/06/21 08:58 Patient states he feels better today and denies any new complaints. He states he slept well last night. His appetite is good. He denies any shortness of breath or chest pain. Denies any dizziness lightheadedness or palpitations. No fever. 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 Review system fall the system was negative Review of Systems Review of Systems: All systems reviewed & are unremarkable except as noted in HPI and below (Subjective) Exam Narrative: General: Pt is alert awake and in NAD Lungs/Chest: Trachea central Clear BS B/L, No crackles or wheezing. Cardiac: RRR. Normal S1 S2. No murmurs Circulation: Pedal pulses are intact and symmetrical. Abdomen: Normal bowel sounds.. Soft. NT. ND. Extremities: No clubbing, cyanosis or edema. Warm left BKA : Shaikh in place Neurologic: Follows commands. Moves all 4 extremities PERRL Skin: No Rash Objective Data Vital Signs Vital Signs: Vital Signs - 24 hr 05/05/21 10:00 05/05/21 10:08 05/05/21 10:22 Temperature Pulse Rate 89 84 Respiratory Rate 23 H 21 H Blood Pressure 76/52 L 98/71 L 90/66 L Pulse Oximetry 88 L 99 05/05/21 12:00 05/05/21 14:00 05/05/21 16:00 Temperature 36.6 C 36.7 C Pulse Rate 81 76 74 Respiratory Rate 23 H 20 19 Blood Pressure 79/58 L 86/62 L 88/59 L Pulse Oximetry 100 97 99 05/05/21 18:00 05/05/21 19:49 05/05/21 20:00 Temperature 36.9 C Pulse Rate 79 80 75 Respiratory Rate 20 18 Blood Pressure 91/66 L 94/64 L Pulse Oximetry 100 99
[2021-05-06] MEDS: TICAGRELOR 90 MG TABLET PO ×2 (09:10→20:45)
[2021-05-06] MEDS: carvediloL 6.25 MG TABLET PO ×2 (09:10→20:45)
[2021-05-06] MEDS: FUROSEMIDE INJ 40 MG/4 ML VIAL IV PUSH (09:10)
[2021-05-06] MEDS: ROSUVASTATIN 10 MG TABLET 20 MG PO (09:10)
[2021-05-06] MEDS: MAGNESIUM SULF 2 GM/WATER 50ML 2 GM/50 ML BAG IVPB (09:12)
--- NOTE | 2021-05-06 09:56 | PM.PNCARD ---
Progress Note: A&P Additional Plan 65-year-old man with: Advanced multivessel coronary artery disease with severe ischemic cardiomyopathy doing well this morning following emergency intervention of his circumflex vein graft on Thursday. Patient became problematically hypotensive yesterday morning with a combination of carvedilol Entresto spironolactone and isosorbide. Will resume the medications more cautiously today starting with the beta-trudi and the spironolactone. If blood pressure is good will try a lower dose of Entresto starting tomorrow morning. Anticipate him being in the hospital least a couple of more days with this instability before would be prudent to consider discharge. Long-term prognosis unfortunately is not good in this gentleman with advanced coronary and peripheral vascular disease as well as diabetes. Rex Tyler MD [facility] Subjective Date/time seen: Date of service: 05/06/21 09:56 Interval history: Follow-up visit in this 65-year-old man with: Acute ST-elevation CT with subtotal stenosis of the saphenous vein graft to the circumflex on Thursday. Patient underwent emergency PCI of this with angiographic success but with slow reflow. He has total occlusion of all of his [place] coronary arteries and remaining LEE graft to the LAD as detailed in the catheterization report pre the RCA and its graft are closed. LV function is significantly depressed. Yesterday patient had symptomatic problematic hypotension following receiving his morning medicines. Feels better this morning. Systolic pressure is on the high side. Exam Const: General: comfortable and no acute distress HENMT: Mouth: Yes moist mucous membranes Eyes: Sclera: sclerae normal Pupils: Equal, round and reactive pupils present Neck: Neck: supple and no JVD Resp: Effort & Inspection: normal respiratory effort Auscultation: clear to auscultation bilaterally Cardio: Rate: regular rate Rhythm: regular rhythm GI: GI Palp: Yes Soft to palpation Auscultation: normal bowel sounds Skin: General skin exam: normal color Neuro: Cognition (Neuro): normal cognition Extrem: General: normal to inspection Objective Data Vital Signs Vital Signs: Vital Signs - 24 hr 05/05/21 10:00 05/05/21 10:08 05/05/21 10:22 Temperature Pulse Rate 89 84 Respiratory Rate 23 H 21 H Blood Pressure 76/52 L 98/71 L 90/66 L Pulse Oximetry 88 L 99 05/05/21 12:00 05/05/21 14:00 05/05/21 16:00 Temperature 36.6 C 36.7 C Pulse Rate 81 76 74 Respiratory Rate 23 H 20 19 Blood Pressure 79/58 L 86/62 L 88/59 L Pulse Oximetry 100 97 99 05/05/21 18:00 05/05/21 19:49 05/05/21 20:00 Temperature 36.9 C Pulse Rate 79 80 75 Respiratory Rate 20 18 Blood Pressure 91/66 L 94/64 L Pulse Oximetry 100 99 99 05/05/21 20:29 05/05/21 20:55 05/05/21 21:46 Temperature Pulse Rate 84 79 71 Respiratory Rate 23 H 19 Blood Pressure 84/63 L 91/59 L Pulse Oximetry 99 100 05/05/21 22:00 05/05/21 23:45 05/06/21 00:00 Temperature 36.8 C Pulse Rate 71 75 Respiratory Rate 18 Blood Pressure 101/70 Pulse Oximetry 97 99 05/06/21 02:00 05/06/21 04:00 05/06/21 06:00 Temperature 36.8 C Pulse Rate 70 86 88 Respiratory Rate 18 21 H 20 Blood Pressure 96/62 L 115/80 125/83 Pulse Oximetry 99 98 96 05/06/21 07:57 05/06/21 08:00 05/06/21 09:10 Temperature 36.8 C Pulse Rate 94 91 Respiratory Rate 22 H Blood Pressure Pulse Oximetry 94 Intake/Output Intake/Output: Intake & Output 05/03/21 05/04/21 05/05/21 05/06/21 23:59 23:59 23:59 23:59 Intake Total 930 580 Output Total 4200 850 Balance -2180 -270 Meds/Results Medications: Active Medications Generic Name Dose Route Start Last Admin Trade Name Freq PRN Reason Stop Dose Admin Aspirin 81 mg 05/05/21 08:00 05/06/21 07:56 Aspirin 81 Mg Chewable Tablet PO 81 mg DAILY@0800 RODNEY Administration Carvedilol 6.25 mg 05/04/21 21:00 05/06/21
--- NOTE | 2021-05-06 11:43 | PM.IMPN ---
Progress Note: A&P Assessment and Plan (1) Hypotension: Code(s): I95.9 - Hypotension, unspecified Status: Acute Assessment and Plan: Developed yesterday after receiving oral blood pressure medication yesterday. He received a 500mL normal saline bolus; phenylephrine was ordered but never required. Some anti-HTN medications resumed and he is tolerating current regiment. Further medication titration per Cardiology (2) Acute respiratory failure: Code(s): J96.00 - Acute respiratory failure, unspecified whether with hypoxia or hypercapnia Status: Acute Assessment and Plan: Related to pulmonary edema more so than PNA. [place] related to acute CHF exacerbation. Has been treated with IV Lasix with good UOP and negative fluid balance (-3.5L cumulative total). Improved and patient is now on room air. Continue therapy. Continue to increase activity le3vel as tolerated. (3) Mitral regurgitation: Code(s): I34.0 - Nonrheumatic mitral (valve) insufficiency Status: Acute Assessment and Plan: C showing moderate mitral valve regurgitation. Afterload reduction as allowed by blood pressure. Check Echo (4) CHF (congestive heart failure), NYHA class I: Code(s): I50.9 - Heart failure, unspecified Status: Acute Assessment and Plan: CXR on admission showing pulmonary edema more likely than PNA. BNP 5270. Patient's EF 30-35%. He remains on Lasix IV. Renal function stable. Check echocardiogram. (5) ST elevation (STEMI) myocardial infarction: Code(s): I21.3 - ST elevation (STEMI) myocardial infarction of unspecified site Status: Acute Assessment and Plan: Patient with known CAD status post CABG in the past. Trop up to 8.2. [facility] results noted and now status post PCI this admission. Stent placed and he was started on dual antiplatelet therapy, Coreg and Crestor. Entresto and Indur held at this time (6) CAD (coronary artery disease): Code(s): I25.10 - Atherosclerotic heart disease of [place] coronary artery without angina pectoris Status: Chronic Assessment and Plan: Patient with known coronary disease status post CABG. Left heart catheterization results as noted. He has 2 grafts that are open. Continue aggressive medical management. (7) Diabetes mellitus: Code(s): E11.9 - Type 2 diabetes mellitus without complications Status: Chronic Assessment and Plan: The patient's blood glucose was reviewed on 05/06 Glucose remains well controlled. Continue AccuCheks covering with sliding scale. Hypoglycemia protocol available as needed. Continue current medications. (8) Hyperlipidemia: Code(s): E78.5 - Hyperlipidemia, unspecified Status: Chronic Assessment and Plan: Triglyceride 491, cholesterol 141, LDL 52 and HDL 25. AST was mildly elevated this is trending downward most likely related to above. He has been switched to high-dose Crestor. Continue the same. (9) Neuropathy: Code(s): G62.9 - Polyneuropathy, unspecified Status: Chronic Assessment and Plan: Stable. Related to his diabetes. Neurontin on hold. Will resume. (10) Hypertension: Code(s): I10 - Essential (primary) hypertension Status: Chronic Assessment and Plan: Patient's blood pressure was reviewed on 05/06 Blood pressure was low yesterday treated with IV fluids. Medications have been adjusted. Blood pressure better controlled. Subjective Date/time seen: 05/06/21 11:43 Interval history: 65yo male with CAD, DM and HTN who presents for chest pain and found to have STEMI. He had an acute STEMI with subtotal stenosis of the saphenous vein graft to the circumflex. Patient underwent emergency PCI on 05/04 with angiographic success but with ERIK 2 flow. He has total occlusion of all of his [place] coronary arteries and remaining LEE graft to the LAD as detailed in the catheterization
[2021-05-06] MEDS: INSULIN ASPART (*BKC) 100 UNITS/ML SUB-Q ×2 (12:10→17:06)
[2021-05-06 12:16] LABS: Glucose Point of Care 212 mg/dl (65-105)
[2021-05-06] MEDS: PERFLUTREN LIPID MICROSPHERES 1.5 ML VIAL DILUTED TO 10 ML TOTAL VOLUME IV PUSH (13:51)
[2021-05-06] MEDS: GABAPENTIN 400 MG CAPSULE PO ×2 (13:55→17:06)
[2021-05-06 17:03] LABS: Glucose Point of Care 242 mg/dl (65-105)
--- NOTE | 2021-05-06 17:51 | PC.NURSE ---
Report given to ADOLPH Yates.
--- NOTE | 2021-05-06 19:09 | PC.NURSE ---
Received patient from ICU via bed with ICU staff. Patient settled in room. No distress noted. No c/o pain.
--- NOTE | 2021-05-06 19:21 | PC.NURSE ---
1905 patient transferred to [facility]. Personal belongings with patient.
[2021-05-06 22:54] LABS: Glucose Point of Care 228 mg/dl (65-105)
[2021-05-07] VITALS (11 sets, daily range): BP systolic 99–108; BP diastolic 63–69; PULSE 63–93; RESP 16–18; TEMP 35.6–36.3; O2SAT 97–98
[2021-05-07 05:49] LABS: Hematocrit 38.6 % (42.0-52.0); Hemoglobin 13.2 g/dL (14.0-18.0); Mean Corpuscular HGB Conc 34.2 g/dl (32-36); Mean Corpuscular Volume 96.5 fl (80-100); Mean Platelet Volume 10.6 fl (7.4-10.4); Platelet Count Result 240 k/mm3 (150-375); Red Cell Distribution Width 12.9 % (11.5-14.5); White Blood Count 8.3 K/mm3 (4.5-10.0)
[2021-05-07 06:11] LABS: Alanine Aminotransferase 22 U/L (4-50); Albumin Level 4.2 g/dL (3.5-5.1); Alkaline Phosphatase 56 U/L (38-126); Anion Gap 9 mmol/L (8-16); Aspartate Amino Transferase 42 U/L (17-59); Bilirubin,Total 1.6 mg/dL (0.2-1.3); Blood Urea Nitrogen 42 mg/dL (9-20); Calcium 9.5 mg/dL (8.4-10.2); Carbon Dioxide 24 mmol/L (22-30); Chloride 105 mmol/L (98-107); Estimated CRCL calculation 56 ml/min; Estimated Glomerular Filt Rate > 60; Glucose 159 mg/dL (65-110); Magnesium 2.1 mg/dL (1.6-2.3); Sodium 138 mmol/L (137-145)
[2021-05-07 06:36] LABS: Glucose Point of Care 147 mg/dl (65-105)
[2021-05-07] MEDS: carvediloL 6.25 MG TABLET PO ×2 (08:32→20:42)
[2021-05-07] MEDS: ASPIRIN 81 MG CHEWABLE TABLET PO (08:32)
[2021-05-07] MEDS: GABAPENTIN 400 MG CAPSULE PO ×3 (08:32→17:48)
[2021-05-07] MEDS: SPIRONOLACTONE 25 MG TABLET PO (08:33)
[2021-05-07] MEDS: TICAGRELOR 90 MG TABLET PO ×2 (08:33→20:41)
[2021-05-07] MEDS: ROSUVASTATIN 10 MG TABLET 20 MG PO (08:33)
--- NOTE | 2021-05-07 09:39 | PM.PNCARD ---
Progress Note: A&P Assessment and Plan (1) Mitral regurgitation: Code(s): I34.0 - Nonrheumatic mitral (valve) insufficiency <STERLING Mayorga - Last Filed: 05/07/21 17:09> Status: Acute <STERLING Mayorga - Last Filed: 05/07/21 17:09> Assessment and Plan: Mild MR per echo performed during this hospitalization. No MR appreciated on exam today. <STERLING Mayorga - Last Filed: 05/07/21 17:09> (2) CHF (congestive heart failure), NYHA class I: Code(s): I50.9 - Heart failure, unspecified <STERLING Mayorga - Last Filed: 05/07/21 17:09> Status: Acute <STERLING Mayorga - Last Filed: 05/07/21 17:09> Assessment and Plan: Ischemic CMY with EF 35-40% by echocardiogram this hospitalization Continue Coreg 6.5mg b.i.d Restarted Entresto at lower dose (08/19) due to HoTN - monitor BP and up titrate as tolerated Continue Spironolactone 25mg daily <STERLING Mayorga - Last Filed: 05/07/21 17:09> (3) CAD (coronary artery disease): Code(s): I25.10 - Atherosclerotic heart disease of [place] coronary artery without angina pectoris <STERLING Mayorga - Last Filed: 05/07/21 17:09> Status: Chronic <STERLING Mayorga - Last Filed: 05/07/21 17:09> Assessment and Plan: Extensive history of multivessel CAD, prior CABG ~6 years ago according to patient Continue ASA Continue brillinta Continue statin <STERLING Mayorga - Last Filed: 05/07/21 17:09> (4) ST elevation (STEMI) myocardial infarction: Code(s): I21.3 - ST elevation (STEMI) myocardial infarction of unspecified site <STERLING Mayorga - Last Filed: 05/07/21 17:09> Status: Acute <STERLING Mayorga - Last Filed: 05/07/21 17:09> Assessment and Plan: Presented to ED on 05/04 with complaints of chest pain. Was found to have ST elevations in the inferior leads. He was taken to the cardiac director of cardiac cath lab emergently where he underwent coronary angiogram and PCI of SVG to the circumflex artery. ERIK 2 flow restored. Remains free of chest pain Continue ASA Continue brillinta Continue statin Continue Coreg Restart imdur as BP allows <STERLING Mayorga - Last Filed: 05/07/21 17:09> Additional Plan Attending addendum: I agree with the above documentation and plan of care as outlined. <Srinivas Rodriguez MD - Last Filed: 05/08/21 09:47> Subjective Date/time seen: 05/07/21 09:39 <STERLING Mayorga - Last Filed: 05/07/21 17:09> Interval history: Cardiology follow up for chest pain Date of service 05/07/2021: Sitting up in the chair states he feels well today. Does report waking up from sleep last night breathing quickly. He says he was able to take some slow deep breaths and the shortness of breath resolved. This correlates with some short runs of SVT noted on telemetry. Will continue to monitor on telemetry <STERLING Mayorga - Last Filed: 05/07/21 17:09> Review of Systems Review of Systems: All systems reviewed & are unremarkable except as noted in HPI and below <STERLING Mayorga - Last Filed: 05/07/21 17:09> Exam Narrative: Pleasant man sitting in the chair. Alert and oriented. <STERLING Mayorga - Last Filed: 05/07/21 17:09> Const: General: comfortable and no acute distress <STERLING Mayorga - Last Filed: 05/07/21 17:09> HENMT: Head: normal to inspection <STERLING Mayorga - Last Filed: 05/07/21 17:09> Mouth: Yes moist mucous membranes <STERLING Mayorga - Last Filed: 05/07/21 17:09> Eyes: Sclera: sclerae normal <STERLING Mayorga - Last Filed: 05/07/21 17:09> Pupils: Equal, round and reactive pupils present <STERLING Mayorga - Last Filed: 05/07/21 17:09> Neck: Neck: supple and no JVD <STERLING Mayorga - Last Filed: 05/07/21 17:09> Other: No carotid bruits are audible <STERLING Mayorga - Last File
--- NOTE | 2021-05-07 09:53 | PM.IMPN ---
Progress Note: A&P Assessment and Plan (1) Hypotension: Code(s): I95.9 - Hypotension, unspecified Status: Acute Assessment and Plan: Developed HoTN 05/05 after receiving oral blood pressure medications. He received a 500mL normal saline bolus; phenylephrine was ordered but never required. Some anti-HTN medications adjusted and he is tolerating current regiment. Further medication titration per Cardiology (2) Acute respiratory failure: Code(s): J96.00 - Acute respiratory failure, unspecified whether with hypoxia or hypercapnia Status: Acute Assessment and Plan: Related to pulmonary edema more so than PNA. [place] related to acute CHF exacerbation. Has been treated with IV Lasix with good UOP and negative fluid balance (-3.6L cumulative total). Improved and patient remains on room air. Resolved (3) Mitral regurgitation: Code(s): I34.0 - Nonrheumatic mitral (valve) insufficiency Status: Acute Assessment and Plan: LHC showing moderate mitral valve regurgitation. But Echo listing this as more mild MR. (4) CHF (congestive heart failure), NYHA class I: Code(s): I50.9 - Heart failure, unspecified Status: Acute Assessment and Plan: CXR on admission showing pulmonary edema more likely than PNA. BNP 5270. Patient's EF 30-35% by [facility]. Echo showing EF 35-40 with inferior HK and diastolic dysfunction. Patietn with acute systolic and diastolic CHF. Lasix now on hold. Clinically appears to be out of heart failure (5) ST elevation (STEMI) myocardial infarction: Code(s): I21.3 - ST elevation (STEMI) myocardial infarction of unspecified site Status: Acute Assessment and Plan: Patient with known CAD status post CABG in the past. Trop up to 8.2. [facility] results noted and now status post PCI this admission. Stent placed and he was started on dual antiplatelet therapy, Coreg and Crestor. Entresto was held and dose decreased. Imdur remains on hold. Inferior hypokinesis noted but not sure if this is new or old. (6) CAD (coronary artery disease): Code(s): I25.10 - Atherosclerotic heart disease of [place] coronary artery without angina pectoris Status: Chronic Assessment and Plan: Patient with known coronary disease status post CABG. Left heart catheterization results as noted. He has 2 grafts that are open. Continue aggressive medical management. (7) Diabetes mellitus: Code(s): E11.9 - Type 2 diabetes mellitus without complications Status: Chronic Assessment and Plan: A1c 7.1. The patient's blood glucose was reviewed on 05/07 Glucose elevated at times from improved oral intake but 159 fasting today. Continue AccuCheks covering with sliding scale. Hypoglycemia protocol available as needed. Continue current medications. Resume home meds at discharge. (8) Hyperlipidemia: Code(s): E78.5 - Hyperlipidemia, unspecified Status: Chronic Assessment and Plan: Triglyceride 491, cholesterol 141, LDL 52 and HDL 25. AST was mildly elevated this is trending downward most likely related to above. He has been switched to high-dose Crestor. Continue the same. (9) Neuropathy: Code(s): G62.9 - Polyneuropathy, unspecified Status: Chronic Assessment and Plan: Stable. Related to his diabetes. Continue Neurontin. (10) Hypertension: Code(s): I10 - Essential (primary) hypertension Status: Chronic Assessment and Plan: Patient's blood pressure was reviewed on 05/07 Blood pressure soft at times. Medications have been adjusted. Blood pressure stable. Subjective Date/time seen: 05/07/21 09:53 Interval history: 65yo male with CAD, DM and HTN who presents for chest pain and found to have STEMI. He had an acute STEMI with subtotal stenosis of the saphenous vein graft to the circumflex. Patient underwent emergency PCI on 05/04 with angiographic success but
[2021-05-07 12:15] LABS: Glucose Point of Care 198 mg/dl (65-105)
[2021-05-07] MEDS: INSULIN ASPART (*BKC) 100 UNITS/ML SUB-Q (17:49)
[2021-05-07 17:58] LABS: Glucose Point of Care 207 mg/dl (65-105)
[2021-05-07] MEDS: SACUBITRIL/VALSARTAN 12-13 MG TABLET 1 TAB PO (20:40)
[2021-05-07 21:11] LABS: Glucose Point of Care 284 mg/dl (65-105)
[2021-05-08] VITALS (7 sets, daily range): BP systolic 108–109; BP diastolic 68–69; PULSE 64–85; RESP 16–18; TEMP 35.3–36.2; O2SAT 99–100
[2021-05-08 05:44] LABS: Hematocrit 37.1 % (42.0-52.0); Hemoglobin 12.5 g/dL (14.0-18.0); Mean Corpuscular HGB Conc 33.7 g/dl (32-36); Mean Corpuscular Hemoglobin 32.1 pg (26-34); Mean Corpuscular Volume 95.1 fl (80-100); Mean Platelet Volume 10.6 fl (7.4-10.4); Platelet Count Result 251 k/mm3 (150-375); Red Cell Distribution Width 12.6 % (11.5-14.5); White Blood Count 7.9 K/mm3 (4.5-10.0)
[2021-05-08 05:56] LABS: Alanine Aminotransferase 22 U/L (4-50); Albumin Level 4.2 g/dL (3.5-5.1); Alkaline Phosphatase 65 U/L (38-126); Anion Gap 15 mmol/L (8-16); Aspartate Amino Transferase 32 U/L (17-59); Bilirubin,Total 1.6 mg/dL (0.2-1.3); Blood Urea Nitrogen 41 mg/dL (9-20); Calcium 9.2 mg/dL (8.4-10.2); Carbon Dioxide 21 mmol/L (22-30); Chloride 101 mmol/L (98-107); Estimated CRCL calculation 66 ml/min; Estimated Glomerular Filt Rate > 60; Glucose 184 mg/dL (65-110); Magnesium 2.1 mg/dL (1.6-2.3); Potassium 4.1 mmol/L (3.4-5.0); Sodium 137 mmol/L (137-145)
[2021-05-08 07:45] LABS: Glucose Point of Care 166 mg/dl (65-105)
[2021-05-08] MEDS: TICAGRELOR 90 MG TABLET PO (08:32)
[2021-05-08] MEDS: GABAPENTIN 400 MG CAPSULE PO ×2 (08:32→12:22)
[2021-05-08] MEDS: ROSUVASTATIN 10 MG TABLET 20 MG PO (08:32)
[2021-05-08] MEDS: SACUBITRIL/VALSARTAN 12-13 MG TABLET 1 TAB PO (08:32)
[2021-05-08] MEDS: SPIRONOLACTONE 25 MG TABLET PO (08:32)
[2021-05-08] MEDS: carvediloL 6.25 MG TABLET PO (08:32)
[2021-05-08] MEDS: ASPIRIN 81 MG CHEWABLE TABLET PO (08:33)
--- NOTE | 2021-05-08 09:11 | PM.PNCARD ---
Progress Note: A&P Additional Plan 65-year-old man with: Advanced multivessel coronary artery disease with acute ST segment elevation [place] patient had subtotal occlusion with degenerative changes in his saphenous vein graft to the circumflex. As stated in my catheterization report his [place] coronary circulation is totally occluded save for a diagonal branch of the LAD and a small 1st OM branch. The LEE branch to the LAD was nicely patent. The right coronary graft appears to be chronically closed. As a result of all of this he does have a significant ischemic cardiomyopathy. Today the patient appears to be stable enough and a reasonable candidate for discharge. There is no evidence of decompensated heart failure but of course he is at risk for that and there is no longer any ischemic symptoms and no hypotension. Hopefully as I see him in the outpatient in the office I will be able to up titrate his Entresto and carvedilol. I will see that appropriate follow-up is scheduled in my office. Discharge to home today is reasonable from my perspective Rex Tyler MD [facility] Subjective Date/time seen: date of service:05/08/21 09:11 Interval history: Cardiology follow up for chest pain, ST-elevation [place] with emergency PCI to circumflex vein graft. Date of service 05/08/2021: Patient is asymptomatic no chest pain no shortness of breath has not had any arrhythmias on telemetry and no further episodes of hypotension. Exam Const: General: comfortable and no acute distress HENMT: Mouth: Yes moist mucous membranes Eyes: Sclera: sclerae normal Pupils: Equal, round and reactive pupils present Neck: Neck: supple and no JVD Thyroid: thyroid normal Other: Carotid pulses are intact no bruits Resp: Effort & Inspection: normal respiratory effort Auscultation: clear to auscultation bilaterally Cardio: Rate: regular rate and tachycardic Rhythm: regular rhythm Other: patient without significant murmur, S4 is audible no S3 GI: GI Palp: Yes Soft to palpation Auscultation: normal bowel sounds Skin: General skin exam: normal color Neuro: Cognition (Neuro): normal cognition Extrem: Other: no edema, status post right BKA Objective Data Vital Signs Vital Signs: Vital Signs - 24 hr 05/07/21 12:00 05/07/21 14:00 05/07/21 16:00 Temperature 35.6 C L Pulse Rate 93 77 63 Respiratory Rate 18 Blood Pressure 99/63 L Pulse Oximetry 98 05/07/21 20:00 05/07/21 20:42 05/07/21 22:00 Temperature 36.3 C L Pulse Rate 79 75 76 Respiratory Rate 16 Blood Pressure 106/69 Pulse Oximetry 98 05/08/21 00:00 05/08/21 04:00 05/08/21 06:00 Temperature 36.2 C L Pulse Rate 64 69 71 Respiratory Rate 16 Blood Pressure 108/68 Pulse Oximetry 99 05/08/21 08:32 Temperature Pulse Rate 80 Respiratory Rate Blood Pressure Pulse Oximetry Intake/Output Intake/Output: Intake & Output 05/05/21 05/06/21 05/07/21 05/08/21 23:59 23:59 23:59 23:59 Intake Total 930 1650 2030 1030 Output Total 4200 2350 650 750 Balance -3270 -700 1380 280 Meds/Results Medications: Active Medications Generic Name Dose Route Start Last Admin Trade Name Freq PRN Reason Stop Dose Admin Aspirin 81 mg 05/05/21 08:00 05/08/21 08:33 Aspirin 81 Mg Chewable Tablet PO 81 mg DAILY@0800 RODNEY Administration Carvedilol 6.25 mg 05/04/21 21:00 05/08/21 08:32 Carvedilol 6.25 Mg Tablet PO 6.25 mg Q12HR RODNEY Administration Dextrose 12.5 gm 05/04/21 21:07 Dextrose 50% 25 Gm/50 Ml Syringe IV PUSH PRN PRN Hypoglycemia Protocol Gabapentin 400 mg 05/06/21 13:00 05/08/21 08:32 Gabapentin 400 Mg Capsule PO 400 mg TID RODNEY Administration Glucagon 1 mg 05/04/21 21:07 Glucagon For Inj 1 Mg Vial IM PRN PRN Hypoglycemia Protocol Glucose 15 gm 05/04/21 21:07 Glucose Oral Gel 15 Gm Of Glucse In 37.5 Gm Tube PO PRN PRN Hypoglycemia Protocol
[2021-05-08 11:34] LABS: Glucose Point of Care 210 mg/dl (65-105)
[2021-05-08] MEDS: INSULIN ASPART (*BKC) 100 UNITS/ML SUB-Q (12:22)
--- NOTE | 2021-05-08 12:55 | PM.IMPN ---
Progress Note: A&P Assessment and Plan (1) Hypotension: Code(s): I95.9 - Hypotension, unspecified Status: Acute Assessment and Plan: Developed HoTN 05/05 after receiving oral blood pressure medications. He received a 500mL normal saline bolus; phenylephrine was ordered but never required. Some anti-HTN medications adjusted and he is tolerating current regiment. Further medication titration per Cardiology (2) Acute respiratory failure: Code(s): J96.00 - Acute respiratory failure, unspecified whether with hypoxia or hypercapnia Status: Acute Assessment and Plan: Related to pulmonary edema more so than PNA. [place] related to acute CHF exacerbation. Has been treated with IV Lasix with good UOP and negative fluid balance. Improved and patient remains on room air. Resolved. (3) Mitral regurgitation: Code(s): I34.0 - Nonrheumatic mitral (valve) insufficiency Status: Acute Assessment and Plan: LHC showing moderate mitral valve regurgitation. But Echo listing this as more mild MR. Per Cardiology (4) CHF (congestive heart failure), NYHA class I: Code(s): I50.9 - Heart failure, unspecified Status: Acute Assessment and Plan: CXR on admission showing pulmonary edema more likely than PNA. BNP 5270. Patient's EF 30-35% by [facility]. Echo showing EF 35-40% with inferior HK and diastolic dysfunction. Patient with acute systolic and diastolic CHF. Lasix remains on hold. Clinically appears to be out of heart failure (5) ST elevation (STEMI) myocardial infarction: Code(s): I21.3 - ST elevation (STEMI) myocardial infarction of unspecified site Status: Acute Assessment and Plan: Patient with known CAD status post CABG in the past. Trop up to 8.2. LHC results noted and now status post PCI this admission. Inferior hypokinesis noted but not sure if this is new or old. Stent placed and he was started on dual antiplatelet therapy, Coreg and Crestor. Imdur remains on hold. Entresto was held initially due to HoTN then resumed at lower dose; he appears to be toelrating this well. (6) CAD (coronary artery disease): Code(s): I25.10 - Atherosclerotic heart disease of [place] coronary artery without angina pectoris Status: Chronic Assessment and Plan: Patient with known coronary disease status post CABG. Left heart catheterization results as noted. He has 2 grafts that are open. Continue aggressive medical management. (7) Diabetes mellitus: Code(s): E11.9 - Type 2 diabetes mellitus without complications Status: Chronic Assessment and Plan: A1c 7.1. The patient's blood glucose was reviewed on 05/08 Glucose elevated at times from improved oral intake but 184 fasting today. Continue AccuCheks covering with sliding scale. Hypoglycemia protocol available as needed. Continue current medications. Resume home meds now. (8) Hyperlipidemia: Code(s): E78.5 - Hyperlipidemia, unspecified Status: Chronic Assessment and Plan: Triglyceride 491, cholesterol 141, LDL 52 and HDL 25. AST was mildly elevated but normal now. He has been switched to high-dose Crestor. Continue the same. (9) Neuropathy: Code(s): G62.9 - Polyneuropathy, unspecified Status: Chronic Assessment and Plan: Stable. Related to his diabetes. Continue Neurontin. (10) Hypertension: Code(s): I10 - Essential (primary) hypertension Status: Chronic Assessment and Plan: Patient's blood pressure was reviewed on 05/08 Blood pressure soft at times. Medications have been adjusted. Blood pressure stable. Subjective Date/time seen: 05/08/21 12:55 Interval history: 65yo male with CAD, DM and HTN who presents for chest pain and found to have STEMI. He had an acute STEMI with subtotal stenosis of the saphenous vein graft to the circumflex. Patient underwent emergency PCI on 05/04 with angiographic
--- NOTE | 2021-05-08 14:32 | PM.DS ---
DS: Admitting Diagnosis Admitting Diagnosis Chest pain DS: Discharge Diagnosis Discharge Diagnosis (1) Mitral regurgitation: Code(s): I34.0 - Nonrheumatic mitral (valve) insufficiency Status: Acute Assessment and Plan: Mild MR per echo performed during this hospitalization. (2) CHF (congestive heart failure), NYHA class I: Code(s): I50.9 - Heart failure, unspecified Status: Acute Assessment and Plan: Ischemic CMY with EF 35-40% by echocardiogram this hospitalization Continue Coreg 6.5mg b.i.d Restarted Entresto at lower dose (08/19) due to HoTN - BP has been stable since restarting Continue Spironolactone 25mg daily Will hopefully be able to up titrate heart failure medications as an outpatient (3) CAD (coronary artery disease): Code(s): I25.10 - Atherosclerotic heart disease of [place] coronary artery without angina pectoris Status: Chronic Assessment and Plan: Extensive history of multivessel CAD, prior CABG ~6 years ago according to patient Continue ASA Continue brillinta Continue statin (4) ST elevation (STEMI) myocardial infarction: Code(s): I21.3 - ST elevation (STEMI) myocardial infarction of unspecified site Status: Acute Assessment and Plan: Presented to ED on 05/04 with complaints of chest pain. Was found to have ST elevations in the inferior leads. He was taken to the cardiac component lab tech emergently where he underwent coronary angiogram and PCI of SVG to the circumflex artery. ERIK 2 flow restored. Remains free of chest pain Continue ASA Continue brillinta Continue statin Continue Coreg Restart imdur as BP allows DS: Summary Hospital Course Hospital Course: Patient with advanced multivessel coronary artery disease with presented with acute ST segment elevation [place]. Patient had subtotal occlusion with degenerative changes in his saphenous vein graft to the circumflex. This was addressed with placement of a drug eluting stent. Following PCI he recovered well and did not experience any further chest pain. He was initiated on appropriate medical therapy to manage his cardiomyopathy but his blood pressure was unable to tolerate initial doses. These medications have been reintroduced slowly and at smaller doses. Today the patient appears to be stable enough and a reasonable candidate for discharge. There is no evidence of decompensated heart failure but of course he is at risk for that and there is no longer any ischemic symptoms and no hypotension. Time Spent with Patient Time attestation: Total time spent providing and/or coordinating discharge services: Exam Narrative: Pleasant man sitting in the chair. Alert and oriented. Const: General: comfortable and no acute distress Orientation/consciousness: patient oriented x3 Other: Patient appears much more comfortable than last evening HENMT: Head: normal to inspection Mouth: Yes moist mucous membranes Eyes: Sclera: sclerae normal Pupils: Equal, round and reactive pupils present Neck: Neck: supple and no JVD Thyroid: thyroid normal Other: Carotid pulses are intact no bruits Resp: Effort & Inspection: normal respiratory effort Auscultation: clear to auscultation bilaterally Other: Scant basilar rales Cardio: Rate: regular rate and tachycardic Rhythm: regular rhythm Heart sounds: no murmurs Other: patient without significant murmur, S4 is audible no S3 GI: Auscultation: normal bowel sounds Skin: General skin exam: normal color Other: R groin left heart cath insertion site free from swelling, hematoma, bleeding, bruit. Neuro: General: patient oriented x3 Cranial nerves: Yes Equal, round and reactive pupils present Cognition (Neuro): normal cognition Extrem: General: normal to inspection Right upper extremity: normal to inspection Left upper extremity: normal to inspection Right lower extremity: normal to inspection Left lower extremity: lower l
== END 2021-05-08 15:40 | disposition home or self-care (01) | DRG 246 ==
LOC: ANHED 18:07 → ANHCATHLAB 18:11 → ANHICU 23:07 → ANH2MED 05-08 14:44 → ANHICU 05-09 11:40
PROVIDERS: Emergency Medicine; Internal Medicine; Nurse Practitioner; Admitting Provider Specialist; Emergency Provider General Practice; PCP Family Medicine; Visit Provider Internal Medicine
PROC: 4A023N7 Measurement of Cardiac Sampling and Pressure, Left Heart, Percutaneous Approach (ICD-10-PCS; CPT 93459; principal; 2021-05-04 18:30)
PROC: 027034Z Dilation of Coronary Artery, One Artery with Drug-eluting Intraluminal Device, Percutaneous Approach (ICD-10-PCS; 2021-05-04 18:30)
DX: I21.29 ST elevation (STEMI) myocardial infarction involving other sites (principal); J96.00 Acute respiratory failure, unspecified whether with hypoxia or hypercapnia; I50.41 Acute combined systolic (congestive) and diastolic (congestive) heart failure; I11.0 Hypertensive heart disease with heart failure; I25.10 Atherosclerotic heart disease of native coronary artery without angina pectoris; I25.5 Ischemic cardiomyopathy; I34.0 Nonrheumatic mitral (valve) insufficiency; D11.9 Benign neoplasm of major salivary gland, unspecified; E78.5 Hyperlipidemia, unspecified; E11.42 Type 2 diabetes mellitus with diabetic polyneuropathy; I95.2 Hypotension due to drugs; Z89.512 Acquired absence of left leg below knee; Z95.1 Presence of aortocoronary bypass graft
CPT/HCPCS: 36415; 71045; 80048; 80053; 80061; 82948; 83036; 83605; 83735; 83880; 84443; 84484; 85025; 85027; 85610; 85730; 87086; 93005; 93459; 94002; 94003; 94660; 97110; 97116; 97161; 97165; 97535; 99291; A9270; C1725; C1769; C1874; C1887; C1894; C8929; C9606; J0583; J1327; J1644; J1815; J1940; J3475; J7040; L1830; Q9957

== ENCOUNTER 2021-05-15 10:47 | Outpatient (CLI) | payer MEDICARE, MEDICAID, SELFPAY ==
[2021-05-15 12:05] LABS: Anion Gap 12 mmol/L (8-16); Blood Urea Nitrogen 29 mg/dL (9-20); Calcium 10.3 mg/dL (8.4-10.2); Carbon Dioxide 21 mmol/L (22-30); Chloride 103 mmol/L (98-107); Estimated Glomerular Filt Rate > 60; Glucose 225 mg/dL (65-110); Sodium 136 mmol/L (137-145)
== END 2021-05-15 10:48 | disposition home or self-care (01) ==
PROVIDERS: Visit Provider Nurse Practitioner
DX: I50.9 Heart failure, unspecified (principal)
CPT/HCPCS: 36415; 80048

== ENCOUNTER 2021-09-09 09:45 | Outpatient (RCR) | payer MEDICARE, MEDICAID, SELFPAY ==
[2021-06-25 08:10] VITALS: PULSE 84
== END 2021-09-09 19:30 | disposition home or self-care (01) ==
LOC: ANHCPREHAB 09:45
PROVIDERS: Visit Provider Specialist
DX: I25.2 Old myocardial infarction (principal)
CPT/HCPCS: 93798

== ENCOUNTER 2021-09-26 11:47 | Outpatient (CLI) | payer MEDICARE, MEDICAID, SELFPAY ==
[2021-09-26 12:42] LABS: Anion Gap 10 mmol/L (8-16); Blood Urea Nitrogen 32 mg/dL (9-20); Calcium 10.2 mg/dL (8.4-10.2); Carbon Dioxide 28 mmol/L (22-30); Chloride 101 mmol/L (98-107); Estimated Glomerular Filt Rate > 60; Glucose 262 mg/dL (65-110); Potassium 4.9 mmol/L (3.4-5.0); Sodium 139 mmol/L (137-145)
== END 2021-09-26 11:48 | disposition home or self-care (01) ==
LOC: ANHLAB 11:52
PROVIDERS: Visit Provider Nurse Practitioner
DX: E87.5 Hyperkalemia (principal)
CPT/HCPCS: 36415; 80048